=== PATIENT | female | born 1980 | race African-American/Black ===

== ENCOUNTER 2017-01-25 20:25 | Emergency (ER) | payer SELFPAY ==
[~2017-01-25] VITALS: Ht 157.5 cm; Wt 59.0 kg
--- NOTE | ~2017-01-25 | CT114 ---
[facility] A Service of [facility] RADIOLOGY TEXT RESULTS PATIENT: SANJUANA CROWLEY LOCATION: [facility] : [birth year] UNIT #: [id number] AGE: [address]: Kashmir Daniel DO SEX: F ORDER DR: [id number] [facility] [address] [place], [place] [address] [id number] E MR#: [id number] Acc #: [id number] NAME: SANJUANA CROWLEY : 1980 SEX: F STUDY DATE/TIME: 01/26/2017 00:46 UNIT: [facility] ROOM: STUDY DESCRIPTION: CT Soft Tissue Neck W Cont Attending Physician: Kashmir Daniel D.O. Ordering Physician: Kashmir Daniel D.O. Primary Care Physician: Primary Care Physician No MEDICAL IMAGING REPORT This report is preliminary unless electronic signature is present EXAM Neck CT, 01/26 at 00:46 INDICATION Sore throat that started yesterday. Pain with swallowing. Pain rates 10/10. TECHNIQUE Axial images were obtained through the neck following IV contrast administration. Multiplanar reformats were obtained. This CT exam was performed with one or more of the following radiation dose reduction techniques: automatic exposure control, adjustment of mA and/or kV according to patient size, and iterative reconstruction. COMPARISON No comparison CT. FINDINGS Visualized upper lungs are clear. Thyroid gland is mildly prominent for size and it contains a small hypodense nodule on the right side measuring about 4.0 mm. The larynx is normal. Epiglottis is normal. Prevertebral soft tissues are normal. Floor of the mouth is normal. Salivary glands are normal. There is no adenopathy. The uvula appears enlarged and edematous. Additionally, there appears to be a left side tonsillar abscess measuring about 7.0 x 9.0 x 9.0 mm in size. This is in the inferior aspect. Right side tonsils appear normal. IMPRESSION 1. Enlarged left pharyngeal tonsil containing an abscess measuring 9.0 x 9.0 x 7.0 mm. 2. Edematous enlarged uvula. [facility] A Service of [facility] RADIOLOGY TEXT RESULTS PATIENT: SANJUANA CROWLEY LOCATION: [facility] : [birth year] UNIT #: [id number] AGE: [address]: Kashmir Daniel DO SEX: F ORDER DR: 3. Enlarged thyroid gland containing at least a single hypodense small nodule on the right. This could be evaluated with outpatient thyroid ultrasound if indicated. Dictated by... John Toussaint Jr., M.D. THIS IS AN ELECTRONICALLY VERIFIED REPORT John Toussaint Jr., M.D. at 01/27/2017 6:02 AM ANTHONY/eboni TD: 01/26/2017 09:45 JOB #: [id number] MEDICAL IMAGING REPORT Page 1 of 1 COPY
--- NOTE | ~2017-01-25 | CR195 ---
[facility] A Service of [facility] RADIOLOGY TEXT RESULTS PATIENT: SANJUANA CRWOLEY LOCATION: [facility] : 78 UNIT #: [id number] AGE: [address]: Kashmir Daniel DO SEX: F ORDER DR: [id number] [facility] [address] [place], [place] [address] [id number] E MR#: [id number] Acc #: [id number] NAME: SANJUANA CROWLEY : 1980 SEX: F STUDY DATE/TIME: 01/25/2017 22:54 UNIT: [facility] ROOM: STUDY DESCRIPTION: CR Neck Soft Tissue Attending Physician: Kashmir Daniel D.O. Ordering Physician: Kashmir Daniel D.O. Primary Care Physician: Primary Care Physician No MEDICAL IMAGING REPORT This report is preliminary unless electronic signature is present EXAM Neck soft tissue, 01/25 22:54 INDICATIONS Sore throat for 2 days with inability to swallow. FINDINGS Two soft tissue views of the neck were obtained. Prevertebral soft tissues are normal. The epiglottis is normal. The airway is widely patent. There are no radiopaque foreign bodies. Patient may have a prominent lingual tonsil. Mild degenerative disc disease noted lower cervical spine. IMPRESSION Probable prominent lingual tonsil. Otherwise normal soft tissue views of the neck. The epiglottis is normal, and the airway is widely patent. Dictated by... John Toussaint Jr., M.D. THIS IS AN ELECTRONICALLY VERIFIED REPORT John Toussaint Jr., M.D. at 01/26/2017 11:27 PM ANTHONY/eboni TD: 01/26/2017 09:22 JOB #: [id number] MEDICAL IMAGING REPORT Page 1 of 1 COPY
[2017-01-25 22:26] LABS: BASOPHIL# 0.1 X10e3 (0-0.3); BASOPHIL% 0.5 % (0-2.5); EOSINOPHIL# 0.2 X10e3 (0-0.7); EOSINOPHIL% 1.3 % (0.0-7.0); HEMOGLOBIN 13.6 gm/dL (12.0-16.0); LYMPHOCYTE# 2.3 X10e3 (1.0-3.5); LYMPHOCYTE% 13.7 % (17.0-45.0); MEAN CORPUSCULAR HEMOGLOBIN 24.1 PG (28-34); MEAN CORPUSCULAR HGB CONC 31.7 g/dL (30-36); MEAN PLATELET VOLUME 8.1 FL (6.5-11.5); MONOCYTE# 1.2 X10e3 (0-1.0); MONOCYTE% 7.3 % (3.0-12.0); NEUTROPHIL% 77.2 % (40-75); PLATELET COUNT 208 X10e3 (140-420); RED BLOOD COUNT 5.66 X10e (3.90-5.30); RED CELL DISTRIBUTION WIDTH 15.7 % (11.0-15.5); WHITE BLOOD COUNT 16.8 X10e3 (4.0-10.5)
[2017-01-25 22:48] LABS: DIFF IND YES
[2017-01-25 22:50] LABS: PLATELET ESTIMATE NORMAL (NORMAL)
[2017-01-25 22:51] LABS: ANISOCYTOSIS SL; BURR CELLS PRESENT; POIKILOCYTOSIS SL
[2017-01-25 22:53] LABS: BUN/CREATININE RATIO 14.28; CALCIUM SERUM 8.6 mg/dL (8.4-10.2); CREATININE SERUM 0.7 mg/dL (0.6-1.4); GLOM FILT RATE Estimated 128.3 mL/min (>60); POTASSIUM 3.7 mmol/L (3.5-5.1)
[2017-01-26 00:16] LABS: AMPHETAMINE NEG (NEG); BARBITURATES NEG (NEG); BENZODIAZEPINES NEG (NEG); COCAINE POS (NEG); MARIJUANA POS (NEG); OPIATES NEG (NEG); TRICYCLIC ANTIDEPRESSANTS NEG (NEG); U METHADONE NEG (NEG)
== END 2017-01-26 02:39 | disposition home or self-care (01) ==
LOC: CED 20:25
PROVIDERS: Emergency Medicine
DX: J03.90 Acute tonsillitis, unspecified (principal); F14.10 Cocaine abuse, uncomplicated; K12.2 Cellulitis and abscess of mouth
CPT/HCPCS: 36415; 70360; 70491; 80048; 80307; 85025; 87651; 96374; 96375; 99284; J0696; J1100; J1200; J1885; Q9967